=== PATIENT | male | born 1985 | race Caucasian/White ===

== ENCOUNTER 2016-12-18 13:01 | Emergency (ER) | payer MEDICAID ==
[~2016-12-18] VITALS: Ht 185.4 cm; Wt 90.7 kg
[~2016-12-18 13:01] MED LIST: ALBU17AE3; ALPR.5T PO; BPR150TCR PO; CLIN-62 PO; HYDR-2858 PO; HYDR-3714 PO; HYDR-623 PO; HYDR1CAP2 PO; HYDR1TAB PO; HYDR1TAB8 OP; IBP800T PO; KETO75CA PO; META800T5 PO; NAPR-243 PO; OXYC-272 PO; PROP1TAB77; QTP200T; SULF-222 PO
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
--- NOTE | 2016-12-18 13:58 | Diagnostic Imaging Report ---
EXAMINATION: Two views of the left clavicle. INDICATION: Injury. 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 Pseudoarticulation is seen between the two displaced fragments at the fracture site. The medial and lateral articulations with the acromion and the sternum appear to be in good position. No radiopaque foreign body seen. 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 No acute fracture seen. Dictated by: Dictated on workstation # [id number]
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
[2016-12-18 14:27] VITALS: BP 130/90
== END 2016-12-18 14:27 | disposition home or self-care (01) ==
LOC: EDUNIT# 13:01 → ER 13:05
DX: M25.551 Pain in right hip (principal); M25.511 Pain in right shoulder; F17.210 Nicotine dependence, cigarettes, uncomplicated; V89.2XXA Person injured in unspecified motor-vehicle accident, traffic, initial encounter
CPT/HCPCS: 72170; 73000; 73502; 99282

== ENCOUNTER 2020-11-18 19:35 | Emergency (ER) | payer SELFPAY ==
[~2020-11-18] VITALS: Ht 185.5 cm; Wt 77.0 kg
[2020-11-18] MEDS ORDERED: HYDROcodone/APAP 5 MG/325 MG (LORTAB) TAB PO ONE (20:00)
[2020-11-18] MEDS ORDERED: KETOROLAC 30 MG/ML VIAL IVP ONE (20:00)
--- NOTE | 2020-11-18 20:05 | ED Lower Extremity ---
General Stated Complaint: L LEG PAIN Source: patient Exam Limitations: no limitations History of Present Illness Date Seen by Provider: November 18, 2020 Time Seen by Provider: 20:02 Initial Comments To ER with left leg pain. He awakened with this pain to the left inguinal and hip region 1 week ago. No history of pain. No injury. No fevers or chills. The pain radiates down to the knee where it terminates. Onset: last week Severity: moderate Pain/Injury Location: left hip Method of Injury: unknown Modifying Factors: Worse With Movement Allergies and Home Medications Allergies Coded Allergies: NKANo Known Allergies (Unverified Allergy, Unknown, NO ALLERGIES, 11/26/06) No Known Drug Allergies (Unverified , 12/27/08) Home Medications Hydrocodone Bit/Acetaminophen 1 Tab Tablet, 1 EACH PO Q 4 - 6 HRS PRN PRN for PAIN Prescribed by: RAJAT BARRAGAN on 02/18/14 1708 Hydrocodone Bit/Acetaminophen 1 Tab Tablet, 1 TAB PO Q4H PRN for PAIN Prescribed by: SATYA ONEILL on 02/27/14 1336 Patient Home Medication List Home Medication List Reviewed: Yes Review of Systems Constitutional: see HPI; No chills, No fever EENTM: see HPI Respiratory: no symptoms reported Cardiovascular: no symptoms reported Genitourinary: no symptoms reported Musculoskeletal: see HPI Skin: no symptoms reported Psychiatric/Neurological: No Symptoms Reported Past Cqnktch-Rtvfwr-Dbrkyl Hx Patient Social History Recent Hopitalizations: Yes (PNEUMONIA) Past Medical History Surgeries: No Respiratory: No Cardiac: No Neurological: No Reproductive Disorders: No Sexually Transmitted Disease: No Gastrointestinal: No Musculoskeletal: No Endocrine: No Psychosocial: Yes Blood Disorders: No Physical Exam Vital Signs Vital Signs - First Documented 11/18/20 20:00 Temp 36.9 Pulse 97 Resp 18 B/P (MAP) 114/83 (93) Pulse Ox 98 O2 Delivery Room Air Capillary Refill : Height, Weight, BMI Height: 6'1.00" Weight: 200lbs. oz. [id number]; BMI Method:Stated General Appearance: WD/WN, no apparent distress Respiratory: no respiratory distress, no accessory muscle use Hips: bilateral hip non-tender, bilateral hip normal inspection, bilateral hip normal range of motion Legs: bilateral leg non-tender, bilateral leg normal inspection, bilateral leg normal range of motion; left leg pain, left leg soft tissue tenderness (The left inguinal and anterior hip region are normal in appearance without bulging or ecchymosis or erythema or wound. It is tender to palpation in this area.) Knees: bilateral knee non-tender, bilateral knee normal inspection, bilateral knee normal range of motion Ankles: bilateral ankle non-tender, bilateral ankle normal inspection, bilateral ankle normal range of motion Feet: bilateral foot non-tender, bilateral foot normal inspection, bilateral foot normal range of motion; right foot other (He has a strong dorsalis pedis pulse with no wounds visible on the leg) Neurologic/Psychiatric: alert, normal mood/affect, oriented x 3 Skin: normal color, warm/dry Progress/Results/Core Measures Results/Orders Lab Results Laboratory Tests Test 11/18/20 20:10 Range/Units White Blood Count 11.1 H 4.3-11.0 10^3/uL Red Blood Count 4.63 4.30-5.52 10^6/uL Hemoglobin 13.7 13.3-17.7 g/dL Hematocrit 42 40-54 % Mean Corpuscular Volume 91 80-99 fL Mean Corpuscular Hemoglobin 30 25-34 pg Mean Corpuscular Hemoglobin Concent 33 32-36 g/dL Red Cell Distribution Width 12.7 10.0-14.5 % Platelet Count 360 130-400 10^3/uL Mean Platelet Volume 9.7 9.0-12.2 fL Immature Granulocyte % (Auto) 0 % Neutrophils (%) (Auto) 67 42-75 % Lymphocytes (%) (Auto) 23 12-44 % Monocytes (%) (Auto) 7 0-12 % Eosinophils (%) (Auto) 2 0-10 % Basophils (%) (Auto) 1 0-10 % Neutrophils # (Auto) 7.5 1.8-7.8 10^3/uL Lymphocytes # (Auto) 2.5 1.0-4.0 10^3/uL Monocytes # (Auto) 0.8 0.0-1.0 10^3/uL Eosinophils # (Auto) 0.2 0.0-0.3 10^3/uL Basophils # (Auto) 0.1 0.0-0.1 10^3/uL Immature Granulocyte # (Auto) 0.0 0.0-0.1 10^3/uL Erythrocyte Sedimentation Rate 10 0-15 MM/HR Sodium Level 140 135-145 MMOL/L Potassium Level 3.7 3.6-5.0 MMOL/L Chloride Level 105 98-107 MMOL/L Carbon Dioxide Level 25 21-32 MMOL/L Anion Gap 10 5-14 MMOL/L Blood Urea Nitrogen 9 7-18 MG/DL Creatinine 0.82 0.60-1.30 MG/DL Estimat Glomerular Filtration Rate > 60 BUN/Creatinine Ratio 11 Glucose Level 124 H 70-105 MG/DL Calcium Level 8.8 8.5-10.1 MG/DL Corrected Calcium 9.0 8.5-10.1 MG/DL Total Bilirubin 0.3 0.1-1.0 MG/DL Aspartate Amino Transf (AST/SGOT) 15 5-34 U/L Alanine Aminotransferase (ALT/SGPT) 20 0-55 U/L Alkaline Phosphatase 103 40-136 U/L C-Reactive Protein High Sensitivity 0.65 H 0.00-0.50 MG/DL Total Protein 7.0 6.4-8.2 GM/DL Albumin 3.8 3.2-4.5 GM/DL My Orders Orders - OLIVE SANTOS APRN Femur, Left, 2 Views (11/18/20 20:00) Cbc With Automated Diff (11/18/20 20:00) Hs C Reactive Protein (11/18/20 20:00) Erythrocyte Sedimentation Rate (11/18/20 20:00) Comprehensive Metabolic Panel (11/18/20 20:00) Ed Iv/Invasive Line Start (11/18/20 20:00) Ct Pelvis W (11/18/20 20:00) Hydrocodone/Apap 5/325 Tablet (Lortab 5 (11/18/20 20:00) Ketorolac Injection (Toradol Injection) (11/18/20 20:00) Iohexol Injection (Omnipaque 350 Mg/Ml 1 (11/18/20 20:45) Received Contrast (Hold Metformin- Contr (11/18/20 20:45) Ns (Ivpb) (Sodium Chloride 0.9% Ivpb Bag (11/18/20 20:45) Rx-Hydrocodone/Apap 5-325 Mg (Rx-Vicodin (11/18/20 21:30) Prednisone Tablet (Deltasone Tablet) (11/18/20 21:30) Medications Given in ED Current Medications Medications Dose Ordered Sig/Yaniv Route Start Time Stop Time Status Last Admin Dose Admin Acetaminophen/ Hydrocodone Bitart 1 ea ONCE ONCE PO 11/18/20 20:00 11/18/20 20:01 DC 11/18/20 20:10 1 EA Iohexol 100 ml ONCE ONCE IV 11/18/20 20:45 11/18/20 20:46 DC 11/18/20 20:37 100 ML Ketorolac Tromethamine 15 mg ONCE ONCE IVP 11/18/20 20:00 11/18/20 20:01 DC 11/18/20 20:10 15 MG Sodium Chloride 100 ml ONCE ONCE IV 11/18/20 20:45 11/18/20 20:46 DC 11/18/20 20:37 80 ML Vital Signs/I&O 11/18/20 20:00 Temp 36.9 Pulse 97 Resp 18 B/P (MAP) 114/83 (93) Pulse Ox 98 O2 Delivery Room Air Departure Communication (Admissions) It does seem to be a moderate effusion around the left femoral head on CT. Awaiting official report. Labs pending. 2112-with Dr. Nelson given the CT finding of hip effusion. Agrees this would be inflammatory rather than infectious given the absence of fevers or chills, the normal white count and essentially normal CRP and normal sed rate after 1 week of symptoms. We will discharged home with some pain medication and steroids and follow-up in Dr. Nelson's office. Impression Primary Impression: Effusion of hip joint, left Disposition: 01 HOME, SELF-CARE Condition: Stable Departure-Patient Inst. Decision time for Depature: 21:15 Referrals: NO,LOCAL PHYSICIAN (PCP) Primary Care Physician ENEDINA NELSON MD Patient Instructions: NO INSTRUCTIONS GIVEN Add. Discharge Instructions: 1. Return to ER for any concerns such as fevers chills or worsening pain. Call Dr. Nelson orthopedics on Saturday for an appointment to be seen. Scripts Prednisone (Prednisone) 20 Mg Tab 40 MG PO DAILY, #6 TAB 0 Refills Prov: OLIVE SANTOS APRN 11/18/20 Hydrocodone/Acetaminophen (Hydrocodone-Acetamin 5-325 mg) 1 Each Tablet 1 TAB PO Q4H PRN for PAIN-MODERATE (5-7), #14 TAB Prov: OLIVE SANTOS APRN 5/14/21 Images Torso/Trunk 1 - Copy Copies To 1: ENEDINA NELSON MD, PETER J DINKING MACHINE OPERATOR November 18, 2020 20:05
[2020-11-18 20:18] LABS: BASOPHILS # (AUTO) 0.1 10^3/uL (0.0-0.1); BASOPHILS % (AUTO) 1 % (0-10); EOSINOPHILS # (AUTO) 0.2 10^3/uL (0.0-0.3); EOSINOPHILS % (AUTO) 2 % (0-10); HEMATOCRIT 42 % (40-54); HEMOGLOBIN 13.7 g/dL (13.3-17.7); LYMPHOCYTES # (AUTO) 2.5 10^3/uL (1.0-4.0); LYMPHOCYTES % (AUTO) 23 % (12-44); MEAN CORPUSCULAR HEMOGLOBIN 30 pg (25-34); MEAN CORPUSCULAR HGB CONC 33 g/dL (32-36); MEAN CORPUSCULAR VOLUME 91 fL (80-99); MEAN PLATELET VOLUME 9.7 fL (9.0-12.2); MONOCYTES # (AUTO) 0.8 10^3/uL (0.0-1.0); MONOCYTES % (AUTO) 7 % (0-12); NEUTROPHILS # (AUTO) 7.5 10^3/uL (1.8-7.8); NEUTROPHILS % (AUTO) 67 % (42-75); PLATELET COUNT 360 10^3/uL (130-400); WHITE BLOOD COUNT 11.1 10^3/uL (4.3-11.0)
[2020-11-18 20:39] LABS: ALBUMIN 3.8 GM/DL (3.2-4.5); CHLORIDE 105 MMOL/L (98-107); POTASSIUM 3.7 MMOL/L (3.6-5.0); SODIUM 140 MMOL/L (135-145)
[2020-11-18 20:40] LABS: CALCIUM 8.8 MG/DL (8.5-10.1)
[2020-11-18 20:42] LABS: GLUCOSE 124 MG/DL (70-105)
[2020-11-18 20:43] LABS: BILIRUBIN,TOTAL 0.3 MG/DL (0.1-1.0); CARBON DIOXIDE 25 MMOL/L (21-32)
[2020-11-18 20:45] LABS: ALKALINE PHOSPHATASE 103 U/L (40-136); CREATININE SERUM 0.82 MG/DL (0.60-1.30); GFR ESTIMATED > 60
[2020-11-18] MEDS ORDERED: HOLD METFORMIN - RECEIVED CONTRAST 20 ML VIAL IV SCH (20:45)
[2020-11-18] MEDS ORDERED: IOHEXOL 350 MG/ML 100 ML (OMNIPAQUE 350) VIAL IV ONE (20:45)
[2020-11-18] MEDS ORDERED: NS 100 ML (IVPB) BAG IV ONE (20:45)
[2020-11-18 20:46] LABS: BUN/CREATININE RATIO 11
[2020-11-18 20:48] LABS: ALANINE AMINOTRANSFERASE 20 U/L (0-55); ERYTHROCYTE SEDIMENTATION RATE 10 MM/HR (0-15)
--- NOTE | 2020-11-18 20:48 | Diagnostic Imaging Report ---
INDICATION: left inguinal/hip pain TECHNIQUE: Frontal and Lateral views of the left femur CORRELATION STUDY: None FINDINGS: Examination of the femur demonstrates no evidence for acute bony abnormality or fracture of the femur. No rudy bony destructive change. Imaging of the hip and knee are unremarkable. Soft tissues are unremarkable. Contrast in the distal left ureter and urinary bladder. IMPRESSION: 1. Negative for acute bony abnormality of the femur. Dictated by: Dictated on workstation # [id number]
--- NOTE | 2020-11-18 20:52 | Diagnostic Imaging Report ---
PROCEDURE: CT pelvis with contrast. TECHNIQUE: Intravenous contrast was administered with pelvic CT performed. Auto Exposure Controls were utilized during the CT exam to meet ALARA standards for radiation dose reduction. INDICATION: 35-year-old male, left hip pain starting approximately one week ago after rising up. Progressive in severity. CORRELATION STUDY: CT pelvis 12/26/2008 FINDINGS: Arterial contrast is visualized. There is small amount of contrast within the distal left ureter. However, no significant contrast within the urinary bladder. Distal colonic diverticulosis without findings to suggest acute diverticulitis. Portion of normal appendix appears to be visualized. No pelvic fluid. The osseous structures demonstrate no acute bony abnormality. Bilateral femoral head acetabular relationships are maintained. Bony trabecular pattern is intact. No bony destructive changes. There is however presence of what appears to be asymmetric left hip joint fluid collection. Maximum thickness along the superior aspect approximately 0.7 mm. Suggestion of slight peripheral enhancement. IMPRESSION: 1. Asymmetric small left hip joint effusion. Nonspecific as to etiology or significance. Given question of enhancement, may be reflective of underlying inflammatory component/infectious component. No acute bony abnormality or rudy bony destructive change demonstrated. Dictated by: Dictated on workstation # [id number]
[2020-11-18] MEDS ORDERED: ACHD5005 PO (21:28)
[2020-11-18] MEDS ORDERED: PRD20T PO (21:28)
[2020-11-18] MEDS ORDERED: predniSONE 20 MG TAB PO ONE (21:30)
[2020-11-18 21:43] VITALS: BP 107/77
== END 2020-11-18 21:43 | disposition home or self-care (01) ==
LOC: EDUNIT# 19:35 → ER 19:36
DX: M25.452 Effusion, left hip (principal)
CPT/HCPCS: 36415; 72193; 73552; 80053; 85025; 85652; 86141

== ENCOUNTER 2022-03-01 20:32 | Emergency (ER) | payer SELFPAY ==
[~2022-03-01 20:32] MED LIST changes: +ACHD5005 PO; +PRD20T PO
== END 2022-03-01 22:00 | disposition home or self-care (01) ==
LOC: EDUNIT# 20:32 → ER 20:33
DX: M79.605 Pain in left leg (principal)